=== PATIENT | female | born 1995 | race African-American/Black ===

== ENCOUNTER → 2018-09-05 | Outpatient (REF) | payer OTHER ==
[2018-09-05 22:02] LABS: CONTROL LINE HCG INT CTR LINE PRESENT; HCG, SERUM QUALITATIVE NEGATIVE (NEGATIVE)
[2018-09-05 22:12] LABS: HCG, SERUM QUANTITATIVE < 1.0 MIU/ML
== END ==
LOC: M LAB REF 10:50
DX: Z34.81 Encounter for supervision of other normal pregnancy, first trimester (principal)

== ENCOUNTER → 2018-09-09 | Outpatient (REF) | payer OTHER | LOC: M SFHCLERA 18:25 | DX: R50.9 Fever, unspecified (principal) ==

== ENCOUNTER → 2019-10-25 | Outpatient (CLI) | payer OTHER ==
--- NOTE | 2019-10-27 13:08 | REP ---
FOCUSED RIGHT SUBAREOLAR, RIGHT AXILLARY, AND LEFT AXILLARY BREAST SONOGRAPHY: History: Right axillary "fullness" and one incident of clear right nipple discharge. Sonographic findings: The left axilla is scanned for comparison purposes and is unremarkable. Scanning in the right axillary soft tissues shows no evidence of adenopathy, mass, or cyst. Subareolar scanning of the right demonstrates heterogeneous fibroglandular background echotexture. No cyst, mass, or acoustic shadowing is appreciated. No suspicious sonographic finding. Impression: BIRADS category 1 negative findings. Clinical followup is advised. Electronically Signed by Lai Rivers MD 10/27/2019 06:24 P
== END ==
LOC: M RAD 17:27
PROVIDERS: ATTEND Family Medicine
DX: N64.52 Nipple discharge (principal)